=== PATIENT | male | born 1955 | race Two or more races ===

== ENCOUNTER 2025-05-09 13:22 | Emergency (ER) | payer OTHER ==
[~2025-05-09] VITALS: Ht 162.6 cm; Wt 89.8 kg
[2025-05-09] MEDS ORDERED: ORPHENADRINE CITRATE 100 MG TABLET PO ONE (15:30)
[2025-05-09] MEDS ORDERED: DEXAMETHASONE SODIUM PHOSPHATE 4 MG/ML VIAL IM ONE (15:30)
[2025-05-09] MEDS ORDERED: KETOROLAC TROMETHAMINE 60 MG VIAL IM ONE ×2 (15:30→16:12)
[2025-05-09] MEDS ORDERED: GUAIFENESIN 200 MG/10 ML BLIST.PACK PO ONE ×2 (15:30→16:12)
[2025-05-09] MEDS ORDERED: DEXAMETHASONE SODIUM PHOSPHATE 4 MG/ML VIAL ONE (16:12)
[2025-05-09 16:36] LABS: BASO % 0.6 % (0.1-1.2); EOS # 0.11 (0.04-0.54); EOS % 1.3 % (0.7-7.0); LYMPH # 2.51 (1.18-3.74); LYMPH % 28.9 % (19.3-53.1); MEAN PLATELET VOLUME 9.10 fl (9.4-12.4); MONO # 0.69 (0.24-0.82); MONO % 7.9 % (4.7-12.5); NEUT # 5.27 (1.56-6.13); NEUT % 60.5 % (34.0-71.1); RED CELL DISTRIBUTION WIDTH 13.2 % (11.6-14.4)
[2025-05-09 16:57] LABS: URINE APPEARANCE Clear; URINE BILIRRUBIN Negative (NEGATIVE); URINE BLOOD Negative; URINE COLOR Yellow; URINE GLUCOSE Negative (NEGATIVE); URINE KETONE Trace (NEGATIVE); URINE LEUKOCYTE Negative; URINE NITRATE Negative; URINE PROTEIN Negative (NEGATIVE); URINE UROBILINOGEN 0.2 E.U./dl
[2025-05-09 17:01] LABS: URINE BACTERIA 31.2 uL (0.0-1933); URINE EPITHELIAL CELLS 3.3 uL (0.0-38.8); URINE RBC 3.3 uL (0.0-20.8); URINE WBC 5.3 uL (0.0-23.2)
[2025-05-09 17:04] LABS: URINE CAST 0.14 uL (0.0-1.40)
[2025-05-09 17:13] LABS: COVID-19 AG NEGATIVE (NEGATIVE)
[2025-05-09 17:18] LABS: ALT/SGPT 31.0 U/L (12-78); AST/SGOT 22.0 U/L (15-37); BILIRUBIN TOTAL 0.25 mg/dL (0.3-1.2); BUN CREA RATIO 14.0 (7.0-25.0); CREATININE SERUM 0.86 mg/dL (0.70-1.30); GFR 87.41; GLOBULINA 4.0 G/DL (2.4-3.5); GLUCOSE FASTING 132.0 mg/dL (65-100); OSMOLALITY SERUM 283.0 MOSM/KG (275-295)
[2025-05-09] MEDS ORDERED: 8HR ARTHRITIS650 M1 PO (18:05)
[2025-05-09] MEDS ORDERED: NORFLEX100MG PO (18:05)
== END 2025-05-09 18:25 | disposition home or self-care (01) ==
LOC: ER 13:23
DX: M79.18 Myalgia, other site (principal); M51.369 Other intervertebral disc degeneration, lumbar region without mention of lumbar back pain or lower extremity pain; M19.90 Unspecified osteoarthritis, unspecified site; B34.9 Viral infection, unspecified; Z20.822 Contact with and (suspected) exposure to COVID-19